=== PATIENT | female | born 1940 ===

== ENCOUNTER 2017-12-04 10:14 | Emergency (ER) | payer OTHER ==
--- NOTE | 2017-12-04 10:36 | CPEKG ---
Heart Rate: 57 RR Interval: 1053 P-R Interval: 184 QRSD Interval: 80 QT Interval: 488 QTC Interval: 476 P [place]: 81 QRS [place]: 48 T Wave [place]: 42 EKG Severity - NORMAL ECG - EKG Impression: SINUS RHYTHM Electronically Signed By: Lorie Hinojosa 04-Dec-2017 15:10:57
--- NOTE | 2017-12-04 11:29 | EDPHY ---
H & P Stated Complaint: SOB Time Seen by Provider: 12/04/17 11:13 HPI/ROS: CHIEF COMPLAINT: Shortness of breath HISTORY OF PRESENT ILLNESS: 77-year-old female presents with shortness of breath. She was a spectator at the [facility] and walked up the stadium stairs. She walked more quickly than usual in order to keep up with her family. Near the top of the stairs, she began to feel short of breath. When she arrived to the very top of the stairs, she was quite short of breath and began feeling panicky. She started feeling dizzy, so eventually laid down on the bench. She became more and more anxious and this made her more short of breath. She has a history of anxiety and the anxiety feeling is not unusual for her. She developed a panic attack and now is feeling back to normal. [place] and when she exercises at home, and she has shortness of breath when climbing stairs, which has not changed recently. She plays tennis regularly. No chest pain. REVIEW OF SYSTEMS: complete 10 point ROS negative except at noted in the HPI - Personal History Current Tetanus/Diphtheria Vaccine: Unsure - Medical/Surgical History Hx Asthma: No Hx Chronic Respiratory Disease: No Hx Diabetes: No Hx Cardiac Disease: Yes Hx Renal Disease: No Hx Cirrhosis: No Hx Alcoholism: No Other PMH: depression, htn, insomnia - Social History Smoking Status: Never smoked - Physical Exam Exam: General Appearance: Alert, pleasant Eyes: Pupils equal and round, no conjunctival pallor or injection ENT, Mouth: Mucous membranes moist Neck: Normal inspection Respiratory: Lungs are clear to auscultation Cardiovascular: Regular rate and rhythm, no murmur Gastrointestinal: Abdomen is soft and nontender Neurological: A&O, nonfocal, normal gait Skin: Warm and dry, no rash Extremities: Nontender, no pedal edema Psychiatric: Mood and affect normal Constitutional: Initial Vital Signs Temperature (C) 36.9 C 12/04/17 10:32 Heart Rate 60 12/04/17 10:32 Respiratory Rate 18 12/04/17 10:32 Blood Pressure 139/79 H 12/04/17 10:32 O2 Sat (%) 100 12/04/17 10:32 O2 Delivery Mode Room Air O2 (L/minute) 1 Allergies/Adverse Reactions: Sulfa (Sulfonamide Antibiotics) Allergy (Verified 12/04/17 10:30) Home Medications: Medication Instructions Recorded Citalopram 12/04/17 Losartan Potassium 12/04/17 Vitamin D3 12/04/17 Zolpidem Tartrate 12/04/17 Medical Decision Making - Diagnostics EKG Interpretation: EKG interpreted by me reveals sinus rhythm, rate rate 57, no ST or T segment changes. Interpretation: Normal EKG Imaging Results: Imaging Impressions Chest X-Ray 12/04/17 11:15 Impression: Query airways disease with no superimposed acute abnormality identified. ED Course/Re-evaluation: This patient presents after an episode of shortness of breath, followed by a panic attack. She now is feeling back to normal. Stat EKG reveals no evidence of ischemia or dysrhythmia. Chest x-ray is unremarkable. Laboratory results unremarkable and discussed with the patient. Oxygen saturation remains 98% on room air. No evidence of acute cardiopulmonary etiology of symptoms. I feel that she is safe and stable for discharge home. Differential Diagnosis: Differential diagnosis includes though it is not limited to pneumonia, pneumothorax, pulmonary embolism, aortic dissection, pericarditis, acute coronary syndrome. - Data Points Laboratory Results: Laboratory Results 12/04/17 11:40 12/04/17 11:40 12/04/17 12/04/17 12/04/17 11:40 11:40 11:40 WBC 5.45 10^3/uL 10^3/uL (3.80-9.50) RBC 4.18 10^6/uL 10^6/uL (4.18-5.33) Hgb 13.7 g/dL g/dL (12.6-16.3) Hct 38.7 % % (38.0-47.0) MCV 92.6 fL fL (81.5-99.8) MCH 32.8 pg pg (27.9-34.1) MCHC 35.4 g/dL g/dL (32.4-36.7) RDW 11.9 % % (11.5-15.2) Plt Count 209 10^3/uL 10^3/uL (150-400) MPV 9.2 fL fL (8.7-11.7) Neut % (Auto) 71.4 % % (39.3-74.2) Lymph % (Auto) 14.5 % L % (15.0-45.0) Meade % (Auto) 11.2 % % (4.5-13.0) Eos % (Auto) 1.8 % % (0.6-7.6) Baso % (Auto) 0.7 % % (0.3-1.7) Nucleat RBC Rel Count 0.0 % % (0.0-0.2) Absolute Neuts (auto) 3.89 10^3/uL 10^3/uL (1.70-6.50) Absolute Lymphs (auto) 0.79 10^3/uL L 10^3/uL (1.00-3.00) Absolute Monos (auto) 0.61 10^3/uL 10^3/uL (0.30-0.80) Absolute Eos (auto) 0.10 10^3/uL 10^3/uL (0.03-0.40) Absolute Basos (auto) 0.04 10^3/uL 10^3/uL (0.02-0.10) Absolute Nucleated RBC 0.00 10^3/uL 10^3/uL (0-0.01) Immature Gran % 0.4 % % (0.0-1.1) Immature Gran # 0.02 10^3/uL 10^3/uL (0.00-0.10) D-Dimer < 0.27 ug/mLFEU ug/mLFEU (0.00-0.50) Sodium 127 mEq/L L mEq/L (135-145) Potassium 5.0 mEq/L mEq/L (3.3-5.0) Chloride 92 mEq/L L mEq/L (97-110) Carbon Dioxide 23 mEq/l mEq/l (22-31) Anion Gap 12 mEq/L mEq/L (8-16) BUN 13 mg/dL mg/dL (7-23) Creatinine 0.8 mg/dL mg/dL (0.6-1.0) Estimated GFR > 60 Glucose 91 mg/dL mg/dL (70-100) Calcium 9.8 mg/dL mg/dL (8.5-10.4) Troponin I 0.014 ng/mL ng/mL (0.000-0.034) NT-Pro-B Natriuret Pep 219 pg/mL pg/mL (0-450) Departure - Departure Disposition: Home, Routine, Self-Care Clinical Impression: Dyspnea Qualifiers: Dyspnea type: dyspnea on exertion Qualified Code(s): R06.09 - Other forms of dyspnea Condition: Good Instructions: Dyspnea (ED) Additional Instructions: Return for recurrent symptoms or any concerns. Please follow-up with your physician when you return home. Referrals: Rosa Elena Mendiola MD [Medical Doctor] - As per Instructions
[2017-12-04 11:52] LABS: PLATELET COUNT 209 10^3/uL (150-400)
[2017-12-04 12:44] VITALS: BP 139/78
== END 2017-12-04 12:54 | disposition home or self-care (01) ==
DX: R06.09 Other forms of dyspnea (principal); I10 Essential (primary) hypertension